=== PATIENT | female | born 1985 | race Caucasian/White ===

== ENCOUNTER 2017-10-06 21:02 | Emergency (ER) | payer BC ==
[~2017-10-06] VITALS: Ht 172.7 cm; Wt 90.7 kg
[~2017-10-06 21:02] MED LIST: ACETAMINOPHEN PO; AMLODIPINE BES2.5 MG PO; AMOXICILLIN,AM875 MG PO; AMOXICILLIN500 MG PO; AMOXICILLIN875 MG PO; AMOXIL500 MG PO; BACTRIM DS 8001 TA1 PO; CEPHALEXIN500 M1 PO; CIPRO250 MG PO; CIPRO500 MG PO; CLARITIN10 MG PO; DONNATAL1 TAB PO; HYDR25T PO; HYDROCODONE BIT1 T11 PO; KEFLEX500 MG PO; LABETALOL100 MG PO; LISINOPRIL2.5 MG PO; MOTRIN800 MG PO; NAPROSYN500 MG PO; NKHM; NKHM PO; PEPCID20 MG PO; PREDNISONE10 MG PO; PREDNISONE20 MG PO; PRENATAL1 TA1 PO; PRENATAL1 TA4 PO; PROGESTERONE; PROPOXYPHENE PO; SUDAFED60 MG PO; TESSALON PERLE200 MG PO; TRAMADOL HCL50 MG PO; VICODIN 5/500 505 MG PO; VOLTAREN50 M1 PO; ZITHROMAX Z PA250 MG PO; ZITHROMAX250 MG PO; ZOFRAN ODT8 MG PO; [UNRECOGNIZED DRUG - OTHER] PO
[2017-10-06 21:18] VITALS: BP 156/107
== END 2017-10-06 21:30 | disposition home or self-care (01) ==
LOC: ED 21:02
DX: Z20.811 Contact with and (suspected) exposure to meningococcus (principal); Z88.2 Allergy status to sulfonamides; Z88.8 Allergy status to other drugs, medicaments and biological substances; Z79.899 Other long term (current) drug therapy

== ENCOUNTER 2017-10-24 21:06 | Emergency (ER) | payer BC ==
[~2017-10-24] VITALS: Ht 170.1 cm; Wt 90.7 kg
[2017-10-24 21:27] VITALS: BP 140/100
[2017-10-25] MEDS ORDERED: Motrin,Rufen800 MG PO (00:37)
[2017-10-25] MEDS ORDERED: Orphenadrine C100 MG PO (00:37)
== END 2017-10-25 00:39 | disposition home or self-care (01) ==
LOC: ED 21:06
DX: S46.811A Strain of other muscles, fascia and tendons at shoulder and upper arm level, right arm, initial encounter (principal); F17.200 Nicotine dependence, unspecified, uncomplicated; Z88.2 Allergy status to sulfonamides; Z88.8 Allergy status to other drugs, medicaments and biological substances; Z79.899 Other long term (current) drug therapy; X58.XXXA Exposure to other specified factors, initial encounter; Y93.89 Activity, other specified; Y92.89 Other specified places as the place of occurrence of the external cause; Y99.8 Other external cause status

== ENCOUNTER → 2017-11-22 | Outpatient (CLI) | payer BC ==
[~2017-11-22] MED LIST changes: +Motrin,Rufen800 MG PO; +Orphenadrine C100 MG PO
== END ==
LOC: US 16:14
DX: M79.604 Pain in right leg (principal)

== ENCOUNTER 2018-04-23 21:41 | Emergency (ER) | payer BC ==
[~2018-04-23] VITALS: Ht 160 cm; Wt 104.3 kg
[2018-04-23 21:45] VITALS: BP 143/81
[2018-04-23] MEDS ORDERED: ANAPROX DS550 MG PO (23:16)
== END 2018-04-23 23:56 | disposition home or self-care (01) ==
LOC: ED 21:41
DX: M25.562 Pain in left knee (principal); G89.29 Other chronic pain; Z79.899 Other long term (current) drug therapy; Z88.1 Allergy status to other antibiotic agents; Z88.8 Allergy status to other drugs, medicaments and biological substances

== ENCOUNTER 2018-11-30 18:04 | Emergency (ER) | payer OTHER ==
[~2018-11-30] VITALS: Ht 160 cm; Wt 113.4 kg
[~2018-11-30 18:04] MED LIST changes: +ANAPROX DS550 MG PO
[2018-11-30 18:05] VITALS: BP 135/75
[2018-11-30] MEDS ORDERED: TESSALON PERLE100 M1 PO (20:08)
[2019-01-16] MEDS ORDERED: AMOXICILLIN500 M2 PO (19:10)
== END 2018-11-30 20:10 | disposition home or self-care (01) ==
LOC: ED 18:04
DX: J40 Bronchitis, not specified as acute or chronic (principal); Z88.1 Allergy status to other antibiotic agents; Z88.2 Allergy status to sulfonamides; Z79.899 Other long term (current) drug therapy

== ENCOUNTER 2019-10-11 10:27 | Emergency (ER) | payer OTHER ==
[~2019-10-11] VITALS: Ht 160 cm; Wt 104.3 kg
[~2019-10-11 10:27] MED LIST changes: +AMOXICILLIN500 M2 PO; +GLUCOPHAGE1000 MG PO; +KEFLEX500 M1 PO; +MEDROL DOSEPAK4 MG PO; +PRINIVIL10 MG PO; +TESSALON PERLE100 M1 PO
[2019-10-11 10:29] VITALS: BP 161/101
== END 2019-10-11 12:25 | disposition home or self-care (01) ==
LOC: ED 10:27
DX: S80.02XA Contusion of left knee, initial encounter (principal); M25.552 Pain in left hip; I10 Essential (primary) hypertension; J45.909 Unspecified asthma, uncomplicated; Z88.2 Allergy status to sulfonamides; Z79.899 Other long term (current) drug therapy; W01.198A Fall on same level from slipping, tripping and stumbling with subsequent striking against other object, initial encounter; Y93.01 Activity, walking, marching and hiking; Y92.89 Other specified places as the place of occurrence of the external cause; Y99.8 Other external cause status

== ENCOUNTER 2020-04-23 20:27 | Emergency (ER) | payer OTHER ==
[~2020-04-23] VITALS: Ht 160 cm; Wt 110.2 kg
[2020-04-23 21:05] VITALS: BP 151/87
== END 2020-04-23 23:05 | disposition home or self-care (01) ==
LOC: ED 20:27
DX: S89.91XA Unspecified injury of right lower leg, initial encounter (principal); I10 Essential (primary) hypertension; J45.909 Unspecified asthma, uncomplicated; Z88.8 Allergy status to other drugs, medicaments and biological substances; Z88.2 Allergy status to sulfonamides; Z79.899 Other long term (current) drug therapy; X58.XXXA Exposure to other specified factors, initial encounter; Y93.89 Activity, other specified; Y92.89 Other specified places as the place of occurrence of the external cause; Y99.8 Other external cause status

== ENCOUNTER 2021-02-12 18:58 | Emergency (ER) | payer OTHER ==
[~2021-02-12] VITALS: Ht 160 cm; Wt 111.1 kg
[2021-02-12 19:07] VITALS: BP 155/100
[2021-02-12 20:16] LABS: BASO % 0.3 % (0.0-1.0); EOS # 0.2 10*3/uL (0.0-0.4); EOS % 2.6 % (1.0-4.0); LYMPH # 1.8 10*3/uL (1.3-4.4); LYMPH % 29.5 % (27.0-41.0); MEAN CELL VOLUME 87.5 fl (81.0-99.0); MEAN CORPUSCULAR HGB 28.6 pg (27.0-31.0); MEAN CORPUSCULAR HGB CONC 32.7 g/dl (33.0-37.0); MEAN PLATELET VOLUME 10.7 fl (9.6-12.3); MONO # 0.4 10*3/uL (0.1-1.0); MONO % 5.6 % (3.0-9.0); NEUT # 3.9 10*3/uL (2.3-7.9); NEUT % 61.8 % (47.0-73.0); PLATELET COUNT AUTOMATED 236 10*3/uL (130-400); RED BLOOD COUNT 4.23 10*6/uL (4.10-5.10); RED CELL DISTRI WIDTH 13.7 % (0-14.5); WHITE BLOOD COUNT 6.2 10*3/uL (4.8-10.8)
[2021-02-12 20:33] LABS: ALBUMIN 3.5 gm/dl (3.1-4.5); ALKALINE PHOSPHATASE 117 U/L (45-117); BUN 11 mg/dl (7-24); CHLORIDE 108 mmol/L (98-107); CREATININE 0.63 mg/dL (0.55-1.02); POTASSIUM 3.6 mmol/L (3.5-5.1); SGOT/AST 14 IU/L (3-35); SGPT/ALT 52 U/L (12-78); SODIUM 139 mmol/L (136-145); TOTAL PROTEIN 7.6 gm/dL (6.4-8.2)
== END 2021-02-12 21:41 | disposition home or self-care (01) ==
LOC: ED 18:58
PROVIDERS: Emergency Medicine
DX: R73.9 Hyperglycemia, unspecified (principal); R42 Dizziness and giddiness; I10 Essential (primary) hypertension; Z88.8 Allergy status to other drugs, medicaments and biological substances; Z88.2 Allergy status to sulfonamides